=== PATIENT | male | born 1960 | race Two or more races ===

== ENCOUNTER 2023-05-12 15:49 | Outpatient (CLI) | payer OTHER | END 2023-05-12 15:56 | disposition home or self-care (01) | LOC: LAB 15:49 | PROVIDERS: ATTEND Urology | DX: R97.20 Elevated prostate specific antigen [PSA] (principal) ==

== ENCOUNTER 2023-06-12 07:35 | Outpatient (CLI) | payer OTHER | END 2023-06-12 07:44 | disposition home or self-care (01) | LOC: SONOGRAMA 07:35 | PROVIDERS: ATTEND Urology | DX: C61 Malignant neoplasm of prostate (principal); D29.1 Benign neoplasm of prostate ==